=== PATIENT | female | born 1985 | race Caucasian/White ===

== ENCOUNTER → 2025-06-24 | Day surgery (SDC) | payer BC | LOC: CSHMAMMO 07:34 | PROVIDERS: ATTEND Student in an Organized Health Care Education/Training Program | PROC: 0HBU3ZX Excision of Left Breast, Percutaneous Approach, Diagnostic (ICD-10-PCS; principal; 2025-06-24) | DX: D24.2 Benign neoplasm of left breast (principal); N60.22 Fibroadenosis of left breast; R92.0 Mammographic microcalcification found on diagnostic imaging of breast | CPT/HCPCS: 19081; 76098; 88305; 88342; A4648 ==